=== PATIENT | female | born 1975 | race African-American/Black ===

== ENCOUNTER 2022-01-07 10:19 | Day surgery (SDC) | payer OTHER ==
[2022-01-04 14:38] VITALS: BMI 20.9
[2022-01-07] MEDS ORDERED: LIDOCAINE HCL/PF 2% SDV 5ML VIAL ONE (11:21)
[2022-01-07] MEDS ORDERED: PROPOFOL 20 ML ONE ×2 (11:21)
[2022-01-07 13:32] VITALS: BP 142/83; PULSE 70; TEMP 98.2
== END 2022-01-07 13:32 | disposition home or self-care (01) ==
LOC: FASU-ENDO 10:19
PROVIDERS: ATTEND Internal Medicine Gastroenterology
PROC: 0DB68ZX Excision of Stomach, Via Natural or Artificial Opening Endoscopic, Diagnostic (ICD-10-PCS; 2022-01-07)
PROC: 0DB48ZX Excision of Esophagogastric Junction, Via Natural or Artificial Opening Endoscopic, Diagnostic (ICD-10-PCS; 2022-01-07)
PROC: 0DB98ZX Excision of Duodenum, Via Natural or Artificial Opening Endoscopic, Diagnostic (ICD-10-PCS; principal; 2022-01-07 11:56)
DX: K29.50 Unspecified chronic gastritis without bleeding (principal); K20.90 Esophagitis, unspecified without bleeding; R13.10 Dysphagia, unspecified
CPT/HCPCS: 84703; 88305-TC; 88342-TC